=== PATIENT | female | born 1950 | race Caucasian/White ===

== ENCOUNTER 2016-06-04 16:45 | Outpatient (CLI) ==
[2013-12-23 19:29] VITALS: BMI 25.0
--- NOTE | 2016-06-04 17:58 | CT ---
EXAM: Noncontrast CT examination of the brain. Comparison: 12/29/2013. Reason for study: Fall with headaches. FINDINGS: No acute intracranial hemorrhage, mass effect, ventricular dilatation, or territorial inf arction. The prepontine and basilar cisterns are patent. There is no extraaxial fluid collection. Partially imaged 1 cm soft tissue mass is seen in the left vertex. The calvarium is intact. The p aranasal sinuses and mastoid air cells are unopacified. IMPRESSION: No acute intracranial findings.
--- NOTE | 2016-06-04 18:04 | CT ---
EXAM: CT cervical spine without contrast. HISTORY: Falls and seizures COMPARISON: CT cervical spine 12/29/2013 TECHNIQUE: Serial axial images of the cervical spine were obtained from the skull base through the lung apices without contrast. These were viewed in multiple planes. FINDINGS: Vertebral bodies demonstrate straightening/mild reversal of the cervical lordosis. There is narrowing from C5-C7 with osteophyte formation. There is trace anterior listhesis of C4 on C5 w hich is unchanged from prior exam. There is mild facet arthropathy. The odontoid process is unrema rkable. The C1 ring is intact. There is bilateral moderate neural foraminal narrowing noted at C6- C7. The soft tissues are unremarkable. IMPRESSION: 1. No compression fracture or subluxation is identified. 2. Multilevel degenerative disease of the spine with bilateral moderate neural foraminal narrowing noted at C6-C7. If further evaluation is indicated, MRI may be obtained. 3. Straightening of the cervical spine may represent positioning versus muscle spasm.
== END 2016-06-04 16:46 | disposition home or self-care (01) ==
LOC: RAD 16:45
PROVIDERS: ATTEND General Practice
DX: R51 Headache (principal); R29.6 Repeated falls

== ENCOUNTER 2017-02-13 14:58 | Outpatient (RCR) ==
[2013-12-23 19:29] VITALS: BMI 25.0
--- NOTE | 2017-02-15 14:22 | RS.OPPTEV2 ---
Date of Note: 02/13/17 Visit #: 1 Date of Evaluation: 02/13/17 Payer Source: MEDICARE Treatment Diagnosis: Low back pain History of Condition/Mechanism of Injury:: Patient reports that pain began about 6 years ago. 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 She has been receiving injections in her back, every 3 months, for years. Prior Level of Function.....Patient was independent with: ADL's, Self Care, Caregiving, Ambulation/Mobility, Community Integration/Access Functional Limitations: Sleep, Self Care, ADL's, Standing, Bending, Squatting, Ambulation, Community Access/Integration Current Subjective/complaints:: Patient reports she has severe back and leg pain. States has significant increased back pain by the time she performs just a few morning ADL's. Reports walking causes leg and back pain. Reports prolonged standing and walking will cause her legs to feel like rubber bands. Reports burning into both hips. She has occasional seizures and no longer drives. States she does all her housework, but she does it with signficant pain. Reports difficulty going to sleep each night. Reports tingling into the lateral portion of bilateral lower legs. States she just received injections 6 days ago. States she gets temporary decrease in pain with use of heating pad or soaking in hot tub. Medical History Medical History: Hypertension, Arthritis Medical History Comments:: generalized osteoarthritis Surgical History: Tonsillectomy Surgical History Comments:: bladder and vaginal lift, abdominoplasty, breast implants Smoking Status: Former smoker Hx Home Medications: Hydrocodone, Losartan, Lorazepam Patient's Goals: Her goal is to get some reduction in back and LE pain. Pain Assessment - Pain Description Pain Location: Low back Current Pain Intensity: 5-6/10 Worst Pain Intensity: 7/10 Functional Outcome Measure Oswestry LBP: 54 - G Codes & Severity Modifier G Codes & Modifier: Mobility current CK. Mobility goal CJ Source of G Code score: Oswestry LBP scale Observation - Observation Posture: Rounded Shoulders, Decreased Lumbar Lordosis Gait - Gait Pattern Gait Comments: Patient ambulates without assistive device, holding onto her 's arm. She demonstrates decreased trunk rotation and decreased bilateral hip and knee flexion during swing phase. - ROM Lumbar Flexion: Hand reach to feet Sidebending to Left: Reach to Mid-thigh Sidebending to Right: Reach to Mid-thigh Comments: Lumbar extension ~50 % of normal range. Patient reports more discomfort with extension. Bilateral LE AROM is WFL's. - Strength Trunk Lateral Flexion: 3+ Fair+ Trunk Rotation: 3+ Fair+ Comments: Bilateral hip strength is generally 4/5. quads 4+/5, HS 4+/5, Ankles 4+ to 5/5. - Special Tests OSWALDO Test: Negative Left, Negative Right SLR Test: Negative Left, Negative Right Seated Dural Stretch Test: Negative Left, Negative Right SI Joint Compression: Negative Palpation Comments:: Patient reports slight tenderness with palpation to the lumbar paraspinals. Left SI joint is tenderness upon palpation. Demonstrates minimal to moderate increased muscle guarding along the lumbar paraspinals bilaterally. Central PA's along the lower lumbar spine increases her pain. Sensation - Sensation Comments: Patient reports tingling into LE's to the feet. Reports light touch and deep pressure are intact. Feet feel cool to the touch. Balance - Sitting Balance Static Sitting Balance: Good Dynamic Sitting Balance: Good - Standing Balance Static Standing Balance: Fair (+) Dynamic Standing Balance: Fair Additional Comments: Additional Comments: Left SLR to 40-45 degrees, right SLR to 50 degrees. Interventions - Exercise/Activities/Manual Therapy Exercises/Activities: No exercises given today. Manual Therapy: NA - Charges Total Direct Minutes: 40 mins Total Treatment Time: 40 mins Procedures billed for this date of service:: HILLARY Clemens Assessment Assessment: Patient presents to therapy with a diagnosis of Low back pain radiatiing to LE's, lumbar disc disease. She has had chronic pain and has been receiving injections for years. She reports low back pain and radiating symptoms into the LE's. She reports difficulty with any position for too long. Sleep is difficult and limited nightly due to pain. She has pain with most activities. Upon evaluation, she demonstrates trunk and hip weakness and decreased flexibility in the HS. She reports tenderness in the lumbar region and left SI joint. Mrs. Claros demonstrates potential to benefit from modalities to reduce tenderness and progressed exercises to focus on trunk and LE strengthening for improved stability. Patient Education: Education of diagnosis, Body/Joint mechanics, Home Exercise Program, Education of Plan of Care Rehab Potential: Good Short Term Goals Goal #1: Patient will display independence with home exercise program. Goal to be met by: 03/01/17 Goal #2: Trunk strength 4/5. Goal to be met by: 03/01/17 Goal #3: Hip flexion strength 4+/5. Goal to be met by: 03/01/17 Goal #4: Bilateral SLR to 50-55 degrees. Goal to be met by: 03/01/17 Director Of Community Education Goals Goal #1: Pt knows HEP and to continue ex's to maintain functional level at D/C. Goal to be met by: 03/27/17 Goal #2: Score on Oswestry LBP scale improved to <30% impaired. Goal to be met by: 03/27/17 Goal #3: Pt able to perform household ADL's with minimal back pain. Goal to be met by: 03/27/17 Goal #4: Patient able to sleep 6 hours per night w/o interruption from back pain. Goal to be met by: 03/27/17 Plan - Treatment to be Provided Procedures: Therapeutic Exercises, Neuromuscular Rehab, Manual Therapy, Patient Education Modalities: Electrical Stimulation, Ultrasound/Phonophoresis, Cryotherapy, Hot Packs, Mechanical Traction - Treatment Plan Frequency: 3 X week Duration: 4 weeks ORDER # VISITS AND/OR THROUGH DATE: 03/27/17 - Treatment Code (1) Low back pain Code(s): M54.5 - LOW BACK PAIN Qualifiers: Chronicity: chronic Back pain laterality: unspecified Sciatica presence: unspecified whether sciatica present Qualified Code(s): M54.5 - Low back pain ; G89.29 - Other chronic pain (2) Lumbar disc disease Code(s): M51.9 - UNSP THORACIC, THORACOLUM AND LUMBOSACR INTVRT DISC DISORDER Comments: M51.9
== END 2017-02-16 | disposition still patient (30) ==
PROVIDERS: ATTEND Pain Medicine Interventional Pain Medicine
DX: M51.9 Unspecified thoracic, thoracolumbar and lumbosacral intervertebral disc disorder (principal); M54.5 Low back pain

== ENCOUNTER 2017-03-21 13:28 | Outpatient (RCR) ==
[2016-04-20 16:12] VITALS: BMI 25.0
--- NOTE | 2017-03-21 14:37 | RS.OPPTDN ---
Subjective Date of Note: 03/21/17 Visit #: 10 Date of Evaluation: 02/13/17 Payer Source: MEDICARE Treatment Diagnosis: Low back pain Current Subjective/complaints:: Pleased with the relief the lumbar traction gives her.She plans to get Dr. wilkes for home unit.She is aware of D/C plan today. Pain Assessment - Pain Description Pain Location: Low back and hips Pain Description: Dull, Aching Current Pain Intensity: 3/10 - Heat/Cryotherapy Treatment: Hot Pack (20 mins. prior to traction ) - Traction Treatment Method: Mechanical, Intermittent, Lumbar Patient Position: Supine Amount of Force Applied: 60 # Hold Time: 30 secs. Rest Time: 5 secs. Duration of treatment: 20 mins. Traction Treatment Comment: Tolerates well. Interventions - Exercise/Activities/Manual Therapy Exercises/Activities: HEP review only of SKTC,DKTC,piriformis stretch,hamstring stretches,LTR. Manual Therapy: N/A Total minutes of Manual Therapy: 0 HOME EXERCISE PROGRAM: SKTC,DKTC,piriformis stretches,trunk rotation ,resisted hip flexion in hooklying.2-3x/day. - Charges Total Direct Minutes: 0 Total Treatment Time: 50 Procedures billed for this date of service:: hp,traction , ADL Assessment: Patient has met rehab potential at this time,but can benefit from use of lumbar traction for pain relief ,resulting in higher level of function for necessary ADL,s.She has good understanding of HEP and is aware of D/C plan. Patient Education: Education of diagnosis, Body/Joint mechanics, Home Exercise Program, Home Safety, Activity Modification, Education of Plan of Care Patient demonstrates compliance with HEP?: Yes Short Term Goals Goal #1: Patient will display independence with home exercise program. Goal to be met by: 03/01/17 Progress towards Goal:: Met Goal #2: Trunk strength 4/5. Goal to be met by: 03/01/17 Progress towards Goal:: Met Goal #3: Hip flexion strength 4+/5. Goal to be met by: 03/01/17 Progress towards Goal:: Met Goal #4: Bilateral SLR to 50-55 degrees. Goal to be met by: 03/01/17 Progress towards Goal:: Met Halfway Goals Goal #1: Pt knows HEP and to continue ex's to maintain functional level at D/C. Goal to be met by: 03/27/17 Progress towards goal: Met Goal #2: Score on Oswestry LBP scale improved to <30% impaired. Goal to be met by: 03/27/17 (34%) Progress towards goal: Partially Met Goal #3: Pt able to perform household ADL's with minimal back pain. Goal to be met by: 03/27/17 Progress towards goal: Partially Met Goal #4: Patient able to sleep 6 hours per night w/o interruption from back pain. Goal to be met by: 03/27/17 Progress towards goal: Met Plan PLAN OF CARE EXPIRES ON:: 03/27/17 ORDER # VISITS AND/OR THROUGH DATE: 03/27/17 PLAN: Plan for Discharge
--- NOTE | 2017-03-27 11:55 | RS.OPPTDC ---
Date of Discharge: 03/21/17 Date of Evaluation: 02/13/17 Number of Visits: 10 Treatment Diagnosis: Low back pain Current Complaints/Gains: Patient states she is very pleased with progress. She hopes to get an order from her doctor for home lumbar traction device. She reports significant relief after receiving lumbar traction in the department. States she is now sleeping through the night and tolerating ADLs' for increased duration. Pain Assessment - Pain Description Pain Location: Low back and hips Pain Description: Dull, Aching Current Pain Intensity: 3/10 Functional Outcome Measure Oswestry LBP: 34 - G Codes & Severity Modifier G Codes & Modifier: Mob Goal CJ. Mob D/C CJ Source of G Code score: Oswestry LBP Interventions - Exercise/Activities/Manual Therapy Exercises/Activities: NA Manual Therapy: N/A HOME EXERCISE PROGRAM: SKTC,DKTC,piriformis stretches,trunk rotation ,resisted hip flexion in hooklying.2-3x/day. - Objective Findings Observations,measurements,etc.: Trunk strength 4/5, bilateral hip strength 4+/ 5. SLR bilaterally 50-55 degrees. - Charges Total Direct Minutes: NA Total Treatment Time: NA Procedures billed for this date of service:: NA Assessment Assessment: Patient reports good progress with less pain, improved sleep, and more tolerance for ADL's. She has made progress with trunk and LE strength. She credits the lumbar traction for most of the decrease in her pain, and hopes to get one for home. Short Term Goals Goal #1: Patient will display independence with home exercise program. Goal to be met by: 03/01/17 Progress towards Goal:: Met Goal #2: Trunk strength 4/5. Goal to be met by: 03/01/17 Progress towards Goal:: Met Goal #3: Hip flexion strength 4+/5. Goal to be met by: 03/01/17 Progress towards Goal:: Met Goal #4: Bilateral SLR to 50-55 degrees. Goal to be met by: 03/01/17 Progress towards Goal:: Met Roll Dough Divider Goals Goal #1: Pt knows HEP and to continue ex's to maintain functional level at D/C. Goal to be met by: 03/27/17 Progress towards goal: Met Goal #2: Score on Oswestry LBP scale improved to <30% impaired. Goal to be met by: 03/27/17 (34%) Progress towards goal: Not Met Goal #3: Pt able to perform household ADL's with minimal back pain. Goal to be met by: 03/27/17 Progress towards goal: Partially Met Goal #4: Patient able to sleep 6 hours per night w/o interruption from back pain. Goal to be met by: 03/27/17 Progress towards goal: Met Plan Reason for Discharge:: Maximum Potential Met
== END 2017-04-18 ==
PROVIDERS: ATTEND Pain Medicine Interventional Pain Medicine
DX: M51.9 Unspecified thoracic, thoracolumbar and lumbosacral intervertebral disc disorder (principal); M54.5 Low back pain

== ENCOUNTER 2017-06-05 10:24 | Outpatient (CLI) ==
[2016-04-20 16:12] VITALS: BMI 25.0
== END 2017-06-05 10:25 | disposition short-term general hospital (02) ==
LOC: AMBL 10:24
PROVIDERS: ATTEND Internal Medicine
DX: R56.9 Unspecified convulsions (principal); S09.90XA Unspecified injury of head, initial encounter; S01.01XA Laceration without foreign body of scalp, initial encounter; R41.82 Altered mental status, unspecified; R40.4 Transient alteration of awareness; R40.2421 Glasgow coma scale score 9-12, in the field [EMT or ambulance]; W19.XXXA Unspecified fall, initial encounter; Y92.002 Bathroom of unspecified non-institutional (private) residence as the place of occurrence of the external cause

== ENCOUNTER 2018-01-31 06:43 | Outpatient (CLI) | payer OTHER ==
[2016-04-20 16:12] VITALS: BMI 25.0
--- NOTE | 2018-02-03 11:15 | STRESSECHO ---
Date of Test: 01/31/18 Ordering Physician: DR. FOUZIA PAULINO Occupation :RETIRED Reason for Exam: ABNORMAL EKG, PRESURGICAL CLEARANCE Smoking History: QUIT 32 YRS AGO Height: 65" Weight: 146 LBS Current Medications: TOPIRAMATE, PROPRANOLOL, LOSARTAN, DULOXETINE, GABAPENTIN, HYDROCODONE Resting EKG: SINUS RHYTHM/ NONSPECIFIC ST-T WAVE CHANGES Target Heart Rate: 130 S-T SEGMENT STAGE MPH/GRADE HEART RATE BPM BLOOD PRESSURE MMHG RHYTHM +/- ELEVATION DEPRESSION SYMPTOMS,COMMENTS AT REST 63 130/72 SR X NONE 1 1.7/10% 96 142/72 SR X NONE 2 2.5/12% 3 3.4/14% 4 4.2/16% 5 5.0/18% Immediately After 110 138/68 SR X FATIGUE Minutes Post Exercise 5:00 65 SR X NO COMMENTS Minutes Post Exercise DURATION OF EXERCISE: 3:37 MAXIMUM HEART RATE REACHED: 110 BPM REASON FOR TERMINATION: FATIGUE 99% OXYGEN SATURATION ON ROOM AIR WITH EXERCISE METS 6.0 INTERPRETATION: 1. NO EVIDENCE OF ISCHEMIA FROM RESTING HEART RATE 63 BPM TO 110 BPM WITH EXERCISE 2. NO CHEST PAIN OR DISCOMFORT 3. ONE PVC POST EXERCISE 4. BLOOD PRESSURE RESPONSE ADEQUATE NORMAL LEFT VENTRICULAR CONTRACTILITY--RESTING AND POST EXERCISE \\ MTDD
--- NOTE | 2018-02-03 11:18 | ECHOSTRESS ---
Date of Exam: 01/31/18 Ordering Physician: DR. FOUZIA PAULINO/DR. ALMAZ MURILLO Reason for Echo: ABNORMAL EKG, SOB, STRESS TEST--NO ISCHEMIA M-Mode Normal Adult Results LV Dimensions Normal Adult Results AoV Opening excursions >1.6 LVEDD-base- 3.5-5.8 Ao root dimensions 2.0-3.7 LVESD-base- 3.1-4.6 L. Atrium dimensions 1.9-3.8 Post. Wall thickness 0.8-1.1 IV septum (thickness) 0.7-1.2 Post. Wall excursion 0.72-1.3 Septal motion Systolic motion R. Ventricular cavity 1.5-2.0 LVEF 60% Paradoxical septal wall motion 2-D: NORMAL LEFT VENTRICULAR CONTRACTILITY--RESTING AND POST EXERCISE M-MODE: MV: AV: TV: PV: CHAMBER SIZE: WALL MOTION: NORMAL LEFT VENTRICULAR CONTRACTILITY--RESTING AND POST EXERCISE PERICARDIUM: INTERPRETATION: 1. NORMAL LEFT VENTRICULAR CONTRACTILITY--RESTING AND POST EXERCISE MTDD
--- NOTE | 2018-02-03 11:20 | ECHO2D ---
Date of Exam: 01/31/18 Ordering Physician: DR. FOUZIA PAULINO Room #: OP Reason for Echo: ABNORMAL EKG, SOB M-Mode Normal Adult Results LV Dimensions Normal Adult Results AoV Opening excursions >1.6 >1.6 LVEDD-base- 3.5-5.8 4.1 Ao root dimensions 2.0-3.7 2.8 LVESD-base- 3.1-4.6 L. Atrium dimensions 1.9-3.8 3.4 Post. Wall thickness 0.8-1.1 1.1 IV septum (thickness) 0.7-1.2 1.1 Post. Wall excursion 0.72-1.3 NORMAL Septal motion NORMAL Systolic motion R. Ventricular cavity 1.5-2.0 NORMAL LVEF 60% 57% Paradoxical septal wall motion NORMAL 2-D : 2-D M Mode Echocardiogram was performed using apical four chamber and left parasternal long and short axis views. Mitral, tricuspid and aortic valves appear to be normal. Contractility of the left ventricle seems to be normal, so is the cavity size. Left atrial cavity size and aortic root appear to be normal. There is no pericardial effusion. There is no thrombus noted in the left ventricular or left aortic cavity. No mitral valve prolapse noted. M-MODE: MV: NORMAL AV: NORMAL TV: NORMAL PV: CHAMBER SIZE: NORMAL WALL MOTION: NORMAL PERICARDIUM: NORMAL INTERPRETATION: 1. NORMAL 2 "D" "M" MODE ECHO MTDD
== END 2018-01-31 06:44 | disposition home or self-care (01) ==
LOC: CAR 06:43
PROVIDERS: ATTEND Internal Medicine
DX: R06.02 Shortness of breath (principal); R94.31 Abnormal electrocardiogram [ECG] [EKG]

== ENCOUNTER 2018-05-16 14:22 | Outpatient (CLI) ==
[2016-04-20 16:12] VITALS: BMI 25.0
--- NOTE | 2018-05-16 15:00 | DI ---
EXAM: Single view of the pelvis and two views of bilateral hips. History: Pelvic pain and bilateral hip pain. Findings: No acute fracture or dislocation. Mild narrowing of bilateral hip joints with tiny osteop hytes. Impression: 1. No acute osseous abnormality. 2. Mild arthritis of bilateral hip joints
== END 2018-05-16 14:23 | disposition home or self-care (01) ==
LOC: RAD 14:22
PROVIDERS: ATTEND Pain Medicine Interventional Pain Medicine
DX: M25.551 Pain in right hip (principal); M25.552 Pain in left hip

== ENCOUNTER 2018-05-30 13:00 | Outpatient (RCR) ==
[2016-04-20 16:12] VITALS: BMI 25.0
--- NOTE | 2018-05-21 15:33 | RS.OPPTEV2 ---
Date of Note: 05/21/18 Visit #: 1 Number of visits approved by Insurance: NA Date of Evaluation: 05/21/18 Payer Source: MEDICARE Surgery Performed?: Yes Treatment Diagnosis: Pelvic and hip pain History of Condition/Mechanism of Injury:: Patient states she fell approximately four months ago, due to a seizure. She believes she landed on her bottom. She has had a history of lumbar spine problems, but has had new symptoms into the left LE and groin since her fall. Prior Level of Function.....Patient was independent with: ADL's, Self Care, Caregiving, Ambulation/Mobility, Community Integration/Access Functional Limitations: Sleep, Self Care, ADL's, Sitting, Standing, Bending, Squatting, Ambulation, Community Access/Integration Current Subjective/complaints:: Patient reports left hip, groin, and buttock pain since falling about four months ago. States the left leg hurts constantly and just seems to get worse. Right LE hurts at times. States anytime she sits , she sits on a heating pad. She usually feels better when sitting if she gets her weight off the left hip. States she also has less pain in the hip and groin with standing. She receives injections every three months with Dr. Currie, mainly for her back. She just received injections in the SI and buttock region in April and they did not help at all. Treatment Side (optional): N/A Medical History Medical History: Hypertension, Arthritis Medical History Comments:: generalized osteoarthritis Surgical History: Tonsillectomy Surgical History Comments:: Vagal Nerve Stimulator placed in January 2018, bladder and vaginal lift, abdominoplasty, breast implants Smoking Status: Former smoker Diagnostic Testing/Imaging:: Xray of the pelvis and bilateral hips on 05/16/18: Impression: "No acute osseous abnormality. Mild arthritis of bilateral hip joints." Hx Home Medications: Hydrocodone, Topiramate (Topamax), Propranolol, Losartan, Duloxetine, Gabapentin, Levetiracemtam Patient's Goals: Her goal is to get relief of left pelvic and LE pain. Pain Assessment - Pain Description Pain Location: hips and pelvis Pain Description: Burning Current Pain Intensity: Left LE 8/10, right LE 6/10 Functional Outcome Measure LE Functional Scale: 20 (20/80=75% impairment) - G Codes & Severity Modifier G Codes & Modifier: No longer required Source of G Code score: Na Observation - Observation Inspection: During our conversation, Mrs. Claros sits with her weight shifted to her right side. Gait - Gait Pattern Gait Comments: Patient ambulates without an assistive device, holding onto . Demonstrates minimal foot clearance bilaterally and slow, cautious gait. - ROM Lumbar Flexion: Hand reach to Mid-Shins Sidebending to Left: Reach to Mid-thigh Sidebending to Right: Reach to Mid-thigh Lumbar Spine ROM Limitations: Soft Tissue Tightness, Pain Comments: Lower trunk rotation: less mobility to her right. Lower trunk rotation bilaterally causes discomfort. - Strength Trunk Lateral Flexion: 4- Good- Trunk Rotation: 4- Good- Comments: Bilateral hip strength is generally 4- to 4/5. Knees 4/5, ankles 4+/ 5. - Special Tests OSWALDO Test: Negative Right, Positive Left SLR Test: Negative Left, Negative Right Seated Dural Stretch Test: Negative Left, Negative Right SI Joint Compression: Positive Comments: Scour test Negative bilaterally. [place] Distraction through the left LE without pain. Palpation Comments:: Tenderness over the left SI joint and gluteal musculature, and left paraspinals. Reports right SI joint is mildly tender. Sensation - Sensation Comments: States sensation to light touch and deep pressure intact. Additional Comments: Additional Comments: In supine, the right LE is longer. in long sitting, the left LE is longer. SLR is less on the right LE: Left SLR to 60 degrees with discomfort, Right SLR to 45-50 degrees. - Treatment Modality: Ultrasound Parameters/Method Applied: 1.5 w/cm2 pulsed at 20% X 10 mins over left SI joint and lumbosacral region. Patient Position: Right Sidelying Interventions - Exercise/Activities/Manual Therapy Exercises/Activities: Patient instructed in lower trunk rotation stretch to her right and also right sidelying passive stretch over pillow/towel roll to stretch left quadratus lumborum. Manual Therapy: N/A HOME EXERCISE PROGRAM: lower trunk rotation stretch to her right and also right sidelying passive stretch over pillow/towel roll - Charges Timed Code Treatment Minutes: 10 mins Total Treatment Time: 58 mins Procedures billed for this date of service:: EVAL Medium, US EVALUATION COMPLEXITY LEVEL EVALUATION COMPLEXITY LEVEL: HISTORY: Medium (Hx LBP, Hx seizures, Hx falls,), EXAM OF BODY SYSTEMS: Medium (strength, ROM, sensation, mobility), CLINICAL PRESENTATION: Medium, CLINICAL DECISION MAKING: Medium Assessment Assessment: Patient presents to therapy with a diagnosis of pelvic and hip pain. She reports onset of symptoms following a fall four months ago, in which she fell on her bottom while having a seizure. She demonstrates symptoms of an upslip and posterior pelvic innominate on the left. She exhibits potential to benefit from modalities and DTM to reduce pain and muscle tightness, and will benefit from exercises and techniques to improve pelvic alignment. Patient Education: Education of diagnosis, Body/Joint mechanics, Home Exercise Program, Education of Plan of Care Rehab Potential: Good Short Term Goals Goal #1: Pt independent and complaint in HEP. Goal to be met by: 06/04/18 Goal #2: Trunk strength 4/5. Goal to be met by: 06/04/18 Goal #3: Left LE symptoms decreased to less than constant. Goal to be met by: 06/04/18 Goal #4: Bilateral SLR to 60 degrees. Goal to be met by: 06/04/18 Fountain Operator Goals Goal #1: Pt knows HEP and to continue ex's to maintain functional level at D/C. Goal to be met by: 06/30/18 Goal #2: Score on LE functional scale improved to 35/80. Goal to be met by: 06/30/18 Goal #3: Pt able to sit as needed with minimal left pelvic/hip pain. Goal to be met by: 06/30/18 Goal #4: Pt able to sleep 6 hours without interruption from left hip/pelvic pain. Goal to be met by: 06/30/18 Plan - Treatment to be Provided Procedures: Therapeutic Exercises, Therapeutic Activity, Neuromuscular Rehab, Manual Therapy, Patient Education Modalities: Electrical Stimulation, Ultrasound/Phonophoresis, Cryotherapy, Hot Packs - Treatment Plan Frequency: 3 X week Duration: 4 weeks Dates of Fountain Operator Goals: 06/30/18 Expiration date of current Insurance Approval:: NA - Treatment Code (1) Pelvic pain Code(s): R10.2 - PELVIC AND PERINEAL PAIN Comments: R10.2 (2) Hip pain Code(s): M25.559 - PAIN IN UNSPECIFIED HIP Qualifiers: Laterality: bilateral Qualified Code(s): M25.551 - Pain in right hip; M25.552 - Pain in left hip (3) Segmental and somatic dysfunction of pelvic region Code(s): M99.05 - SEGMENTAL AND SOMATIC DYSFUNCTION OF PELVIC REGION Comments: M99.05
--- NOTE | 2018-05-23 10:07 | RS.CXNS ---
Date of scheduled appointment: 05/23/18 Type: Cancel Reason for Cancel/NS: Called,is sick.
--- NOTE | 2018-05-26 14:25 | RS.OPPTDN ---
Subjective Date of Note: 05/26/18 Visit #: 2 Number of visits approved by Insurance: NA Date of Evaluation: 05/21/18 Payer Source: MEDICARE Treatment Diagnosis: Pelvic and hip pain Current Subjective/complaints:: Reports finding any position of comfort today, stands with her trunk shifted to the L currently. Pain Assessment - Pain Description Pain Location: lumbar/ and L hip/ L LE Pain Description: Dull, Aching - Treatment Modality: Ultrasound Parameters/Method Applied: 10 mins. @ 1.5 w/cm2 , continuous mode to lumbar and L SI area. Patient Position: Right Sidelying - Heat/Cryotherapy Treatment: Hot Pack (20 mins. to lumabr ni R sidelying) Interventions - Exercise/Activities/Manual Therapy Exercises/Activities: NA Total minutes of Exercise: 0 Manual Therapy: 20 mins. total ,passive pelvic posterior to anterior tilt,SI muscle energy,then long axis distraction to te L LE in supine. Total minutes of Manual Therapy: 20 mins. HOME EXERCISE PROGRAM: lower trunk rotation stretch to her right and also right sidelying passive stretch over pillow/towel roll - Charges Timed Code Treatment Minutes: 30 Total Treatment Time: 50 Procedures billed for this date of service:: hp,US,manual Assessment: Patient initially has shorter L LE ,but no discrepancy after treatment today.She reports less pain as the treatment progresses.She does report increased stretch discomfort with trunk rotation to the R today.She has more erect posture as she exits the clinic. Patient Education: Education of diagnosis, Body/Joint mechanics, Home Exercise Program, Home Safety, Activity Modification, Education of Plan of Care Patient demonstrates compliance with HEP?: Yes Short Term Goals Goal #1: Pt independent and complaint in HEP. Goal to be met by: 06/04/18 Progress towards Goal:: Progressing Goal #2: Trunk strength 4/5. Goal to be met by: 06/04/18 Goal #3: Left LE symptoms decreased to less than constant. Goal to be met by: 06/04/18 Goal #4: Bilateral SLR to 60 degrees. Goal to be met by: 06/04/18 Practicing Dermatologist Goals Goal #1: Pt knows HEP and to continue ex's to maintain functional level at D/C. Goal to be met by: 06/30/18 Progress towards goal: Progressing Goal #2: Score on LE functional scale improved to 35/80. Goal to be met by: 06/30/18 Goal #3: Pt able to sit as needed with minimal left pelvic/hip pain. Goal to be met by: 06/30/18 Goal #4: Pt able to sleep 6 hours without interruption from left hip/pelvic pain. Goal to be met by: 06/30/18 Plan Dates of Intermediate Goals: 06/30/18 Expiration date of current Insurance Approval:: NA PLAN: Cont. skilled PT to reduce /eliminate lumbar and L LE pain.
--- NOTE | 2018-05-28 14:24 | RS.OPPTDN ---
Subjective Date of Note: 05/28/18 Visit #: 3 Number of visits approved by Insurance: NA Date of Evaluation: 05/21/18 Payer Source: MEDICARE Treatment Diagnosis: Pelvic and hip pain Current Subjective/complaints:: Patient reports her pain is less today , but still rather uncomfortable. Pain Assessment - Pain Description Pain Location: lumbar / L hip and posterior thigh Pain Description: Radiating, Dull, Aching, Chronic Current Pain Intensity: 5/10 Other Comments regarding Pain:: radiates [facility] between the L hip and knee ( back of the thigh) - Treatment Modality: Ultrasound Parameters/Method Applied: 10 mins. ,cont. mode @ 1.5 w/cm2 to lumbar and L hip area Patient Position: Right Sidelying - Heat/Cryotherapy Treatment: Hot Pack (20 mins. prior to US) Interventions - Exercise/Activities/Manual Therapy Exercises/Activities: 10 mins. SKTC,trunk rotation to R in hooklying,hamstring stretch,L piriformis stretches. Total minutes of Exercise: 10 Manual Therapy: 10 mins intermittent long axis ditraction to L LE. Total minutes of Manual Therapy: 10 HOME EXERCISE PROGRAM: lower trunk rotation stretch to her right and also right sidelying passive stretch over pillow/towel roll - Charges Timed Code Treatment Minutes: 30 Total Treatment Time: 50 Procedures billed for this date of service:: hp,US,ex ,manual Assessment: Patient reports relief today after therapy,has much improved standing posture,no lateral shift of her trunk in static stance or with ambulation.She is attenive to HEP recommendations,has very supportive . Patient Education: Education of diagnosis, Body/Joint mechanics, Home Exercise Program, Home Safety, Activity Modification, Education of Plan of Care Patient demonstrates compliance with HEP?: Yes Short Term Goals Goal #1: Pt independent and complaint in HEP. Goal to be met by: 06/04/18 Progress towards Goal:: Progressing Goal #2: Trunk strength 4/5. Goal to be met by: 06/04/18 Goal #3: Left LE symptoms decreased to less than constant. Goal to be met by: 06/04/18 Progress towards Goal:: Progressing Goal #4: Bilateral SLR to 60 degrees. Goal to be met by: 06/04/18 Progress towards Goal:: Progressing Hand Shaker Goals Goal #1: Pt knows HEP and to continue ex's to maintain functional level at D/C. Goal to be met by: 06/30/18 Progress towards goal: Progressing Goal #2: Score on LE functional scale improved to 35/80. Goal to be met by: 06/30/18 Goal #3: Pt able to sit as needed with minimal left pelvic/hip pain. Goal to be met by: 06/30/18 Progress towards goal: Progressing Goal #4: Pt able to sleep 6 hours without interruption from left hip/pelvic pain. Goal to be met by: 06/30/18 Plan Dates of Hand Shaker Goals: 06/30/18 Expiration date of current Insurance Approval:: NA PLAN: Cont. skilled PT to reduce /eliminate lumbar and L LE pain.
--- NOTE | 2018-05-30 14:28 | RS.OPPTDN ---
Subjective Date of Note: 05/30/18 Visit #: 4 Number of visits approved by Insurance: NA Date of Evaluation: 05/21/18 Payer Source: MEDICARE Treatment Diagnosis: Pelvic and hip pain Current Subjective/complaints:: Patient reports the relief after last session seemed to last longer into the night.She reports less pain today ,compared to last session. Pain Assessment - Pain Description Pain Location: lumbar Pain Description: Dull, Aching, Chronic Current Pain Intensity: 3/10 Other Comments regarding Pain:: no sciatica currently - Treatment Modality: Ultrasound Parameters/Method Applied: 10 mins. @ 1.5 w/cm2,continuous mode to lumbar/SI region Patient Position: Right Sidelying - Heat/Cryotherapy Treatment: Hot Pack (20 mins. prior to US) Interventions - Exercise/Activities/Manual Therapy Exercises/Activities: HEP review only today. Total minutes of Exercise: 0 Manual Therapy: 10 mins intermittent long axis ditraction to L LE. Total minutes of Manual Therapy: 10 HOME EXERCISE PROGRAM: lower trunk rotation stretch to her right and also right sidelying passive stretch over pillow/towel roll - Charges Timed Code Treatment Minutes: 20 Total Treatment Time: 40 Procedures billed for this date of service:: hp ,US,manual Assessment: Patient has improved alignment of the pelvic girdle ,no pain after treatment today.She is attentive and compliant to HEP,has supportive . Patient Education: Body/Joint mechanics, Home Exercise Program, Activity Modification, Education of Plan of Care Patient demonstrates compliance with HEP?: Yes Short Term Goals Goal #1: Pt independent and complaint in HEP. Goal to be met by: 06/04/18 Progress towards Goal:: Progressing Goal #2: Trunk strength 4/5. Goal to be met by: 06/04/18 Progress towards Goal:: Progressing Goal #3: Left LE symptoms decreased to less than constant. Goal to be met by: 06/04/18 Progress towards Goal:: Progressing Goal #4: Bilateral SLR to 60 degrees. Goal to be met by: 06/04/18 Progress towards Goal:: Progressing Respiratory Therapist Assistant Goals Goal #1: Pt knows HEP and to continue ex's to maintain functional level at D/C. Goal to be met by: 06/30/18 Progress towards goal: Progressing Goal #2: Score on LE functional scale improved to 35/80. Goal to be met by: 06/30/18 Goal #3: Pt able to sit as needed with minimal left pelvic/hip pain. Goal to be met by: 06/30/18 Progress towards goal: Progressing Goal #4: Pt able to sleep 6 hours without interruption from left hip/pelvic pain. Goal to be met by: 06/30/18 Progress towards goal: Progressing Plan Dates of Fci Goals: 06/30/18 Expiration date of current Insurance Approval:: NA PLAN: Cont. skilled PT to reduce /eliminate LBP,return to highest LOF.
--- NOTE | 2018-06-03 11:34 | RS.CXNS ---
Date of scheduled appointment: 06/03/18 Type: Cancel (sick today) Reason for Cancel/NS: called,patient sick today.
--- NOTE | 2018-06-05 14:03 | RS.CXNS ---
Date of scheduled appointment: 06/05/18 Type: No Show Reason for Cancel/NS: Unknown ,but was sick earlier in the week.
--- NOTE | 2018-06-24 10:24 | RS.OPPTDC ---
Date of Discharge: 05/30/18 Date of Evaluation: 05/21/18 Number of Visits: 4 Treatment Diagnosis: Pelvic and hip pain Current Complaints/Gains: Patient's returned our call regarding patient' s status and if she planned to continue the plan of care. He stated she has had no significant change in her pain and would not be continuing therapy. Functional Outcome Measure - G Codes & Severity Modifier G Codes & Modifier: NA Source of G Code score: NA Interventions - Exercise/Activities/Manual Therapy Exercises/Activities: NA Manual Therapy: NA HOME EXERCISE PROGRAM: lower trunk rotation stretch to her right and also right sidelying passive stretch over pillow/towel roll - Charges Timed Code Treatment Minutes: NA Total Treatment Time: NA Procedures billed for this date of service:: NA Assessment Assessment: Patient attended only 4 treatment sessions, including the initial evaluation. She reported no change in symptoms. She did not meet her goals due to not completing plan of care. Short Term Goals Goal #1: Pt independent and complaint in HEP. Goal to be met by: 06/04/18 Progress towards Goal:: Not Met Goal #2: Trunk strength 4/5. Goal to be met by: 06/04/18 Progress towards Goal:: Not Met Goal #3: Left LE symptoms decreased to less than constant. Goal to be met by: 06/04/18 Progress towards Goal:: Not Met Goal #4: Bilateral SLR to 60 degrees. Goal to be met by: 06/04/18 Progress towards Goal:: Not Met Primary School Teacher Goals Goal #1: Pt knows HEP and to continue ex's to maintain functional level at D/C. Goal to be met by: 06/30/18 Progress towards goal: Not Met Goal #2: Score on LE functional scale improved to 35/80. Goal to be met by: 06/30/18 Progress towards goal: Not Met Goal #3: Pt able to sit as needed with minimal left pelvic/hip pain. Goal to be met by: 06/30/18 Progress towards goal: Not Met Goal #4: Pt able to sleep 6 hours without interruption from left hip/pelvic pain. Goal to be met by: 06/30/18 Progress towards goal: Not Met Plan Reason for Discharge:: Self-Discharge
== END 2018-06-19 23:59 ==
PROVIDERS: ATTEND Pain Medicine Interventional Pain Medicine
DX: R10.2 Pelvic and perineal pain (principal); M25.551 Pain in right hip; M25.552 Pain in left hip; M99.05 Segmental and somatic dysfunction of pelvic region

== ENCOUNTER 2018-06-11 11:52 | Outpatient (CLI) | payer OTHER ==
[2016-04-20 16:12] VITALS: BMI 25.0
== END 2018-06-11 11:53 | disposition home or self-care (01) ==
LOC: RHC-LAB 11:52
PROVIDERS: ATTEND General Practice
DX: R39.198 Other difficulties with micturition (principal)
CPT/HCPCS: 81001

== ENCOUNTER 2018-07-25 14:55 | Emergency (ER) | payer OTHER ==
[2018-07-25 15:06] VITALS: BP 145/87; TEMP 97.3; BMI 24.0
--- NOTE | 2018-07-25 15:33 | ED.PDOC ---
General ED Provider: Dr. AHMET URIOSTEGUI Chief Complaint: Urinary Problem Stated Complaint: uti Time Seen by Physician: 15:00 (seen with RN at all times ) Mode of Arrival: Walk-In Information Source: Patient, Family Exam Limitations: No limitations [facility] Nursing and Triage Documentation Reviewed and Agree: Yes Does patient meet sepsis criteria?: No System Inflammatory Response Syndrome: Not Applicable Sepsis Protocol: For patient's 13 years and over: Temp is 96.8 and below OR 101 and greater Pulse >90 BPM Resp >20/minute Acutely Altered Mental Status Are patient's symptoms suggestive of a new infection, such as: -Pneumonia -Skin, Soft Tissue -Endocarditis -UTI -Bone, Joint Infection -Implantable Device -Acute Abdominal Infection -Wound Infection -Meningitis -Blood Stream Catheter Infection -Unknown Complaint Exam - Complaint/Exam Patient Complains of: Reports: Dysuria Onset/Duration: 1 day Symptoms Are: Still present Timing: Intermittent Initial Severity: Mild Current Severity: Mild Location of Pain: Reports: None Character: Reports: Dull Aggravating: Reports: None Alleviating: Reports: None Associated Signs and Symptoms: Reports: Dysuria. Denies: Diaphoresis, Back pain , Fever, Hematuria, Constipation, Blood in stool, Rectal pain, Appetite change, Nausea, Vomiting, Decreased urine output, Increased urine frequency, Increased thirst, Decreased activity, Lethargy, Abdominal Pain, Bubble bath use, Vaginal bleeding, Vaginal discharge, Genital swelling, Genital blisters, Retained foreign body Ectopic Risk Factors: Reports: None Ovarian Torsion Risk Factors: Reports: None Surgical Obstruction Risk Factors: Reports: None RH Status: Unknown Related Surgical History: Reports: None Abdominal Findings: Present: None Differential Diagnoses: UTI Review of Systems - Review Of Systems Constitutional: Reports: No symptoms Eyes: Reports: No symptoms Ears, Nose, Mouth, Throat: Reports: No symptoms Respiratory: Reports: No symptoms Cardiac: Reports: No symptoms GI: Reports: No symptoms : Reports: Dysuria Musculoskeletal: Reports: No symptoms Skin: Reports: No symptoms Neurological: Reports: No symptoms Endocrine: Reports: No symptoms Hematologic/Lymphatic: Reports: No symptoms All Other Systems: Reviewed and Negative Past Medical History - Past Medical History Previously Healthy: Yes Endocrine: Reports: Dyslipidemia Cardiovascular: Reports: Hypertension Respiratory: Reports: None Hematological: Reports: None Gastrointestinal: Reports: None Genitourinary: Reports: None Neuro/Psych: Reports: None Musculoskeletal: Reports: None Cancer: Reports: None Last Menstrual Period: menopause - Surgical History General Surgical History: Reports: None - Family History Family History: Reports: None - Social History Smoking Status: Former smoker Hx Substance Use: No Alcohol Screening: None Physical Exam - Physical Exam Appearance: Well-appearing, No pain distress, Well-nourished Eyes: LAUREN, EOMI, Conjunctiva clear ENT: Ears normal, Nose normal, Oropharynx normal Respiratory: Airway patent, Breath sounds clear, Breath sounds equal, Respirations nonlabored Cardiovascular: RRR, Pulses normal, No rub, No murmur GI/: Soft, Nontender, No masses, Bowel sounds normal, No Organomegaly Musculoskeletal: Normal strength, ROM intact, No edema, No calf tenderness Skin: Warm, Dry, Normal color Neurological: Sensation intact, Motor intact, Reflexes intact, Cranial nerves intact, Alert, Oriented Psychiatric: Affect appropriate, Mood appropriate Critical Care Note - Critical Care Note Total Time (mins): 0 Course - Course Orders, Labs, Meds: Lab Review 07/25/18 15:15 Urine Color Yellow Urine Clarity Slightly Urine pH 6.5 Ur Specific [place] 1.015 Urine Protein Negative Urine Glucose (UA) Negative Urine Ketones Negative Urine Blood Negative Urine Nitrite Negative Urine Bilirubin Negative Urine Urobilinogen 0.2 Ur Leukocyte Esterase 1+ Urine Microscopic WBC 2-5 Ur Squamous Epith Cells 0-2 Urine Bacteria 2+ Orders Category Date Time Status URINALYSIS C & S IF INDICATED Stat LAB 07/25/18 15:15 Completed URINE CULTURE Stat LAB 07/25/18 15:15 Results Vital Signs: Temp Pulse Resp BP Pulse Ox 07/25/18 14:55 97.3 F L 64 16 145/87 H 94 L Departure - Departure Time of Disposition: 15:33 Disposition: HOME SELF-CARE Discharge Problem: Urinary symptoms Instructions: Dysuria (ED) Condition: Good Pt referred to PMD for follow-up: Yes IPMP verified?: No Additional Instructions: Please call your Family Physician as soon as possible to schedule a follow-up appointment.Please call your Family Physician as soon as possible to schedule a follow-up appointment. Allergies/Adverse Reactions: Allergies No Known Allergies Allergy (Verified 07/25/18 15:03) Home Medications: Ambulatory Orders Topiramate [Topamax] 200 mg PO BID 08/06/14 Duloxetine HCl 60 mg PO DAILY 02/08/16 Gabapentin 400 mg PO TID 02/08/16 Propranolol HCl [Propranolol Hcl Er] 120 mg PO DAILY 02/08/16 Acetaminophen [Tylenol] 325 mg PO ONCE #30 tab-cap 12/20/16 Diphenhydramine HCl [Benadryl] 25 mg PO BEDTIME #30 tab-cap 12/20/16 Hydrocodone/Acetaminophen [Hydrocodon-Acetaminophn 10-325] 1 each PO Q6HR PRN # 120 tab-cap 12/20/16 Keppra 1,000 mg PO BID 06/17/17 Disposition Discussed With: Patient
== END 2018-07-25 16:15 | disposition home or self-care (01) ==
LOC: ED 14:55
DX: R30.0 Dysuria (principal); E78.5 Hyperlipidemia, unspecified; I10 Essential (primary) hypertension; Z79.899 Other long term (current) drug therapy
CPT/HCPCS: 81001; 87086; 99282